=== PATIENT | male | born 1955 | race Caucasian/White ===

== ENCOUNTER 2017-03-06 07:26 | Inpatient (IN) | payer OTHER ==
[~2017-03-06] VITALS: Ht 182.9 cm; Wt 102.2 kg
[2017-03-06] MEDS ORDERED: BUPIVACAINE/PF-EPI 0.5% 1:200K ONE ×2 (07:53→07:54)
[2017-03-06] MEDS ORDERED: THROMBIN 5,000 UNIT VIAL TP ONE (07:53)
[2017-03-06] MEDS ORDERED: BACITRACIN 50,000 UNIT ONE (07:53)
[2017-03-06 07:56] VITALS: BP 144/94
[2017-03-06] MEDS ORDERED: AMLO5TAB2 PO (07:57)
[2017-03-06] MEDS ORDERED: METO200T3 PO (07:57)
[2017-03-06] MEDS ORDERED: METF10002 PO (07:57)
[2017-03-06] MEDS ORDERED: SENN8.6T64 PO (07:57)
[2017-03-06] MEDS ORDERED: GLIP5TAB10 PO (07:57)
[2017-03-06] MEDS ORDERED: LISI-170 PO (07:57)
[2017-03-06] MEDS ORDERED: ASPI-496 PO (07:57)
[2017-03-06] MEDS ORDERED: ATOR10TA9 PO (07:57)
[2017-03-06] MEDS ORDERED: DOCU240C53 PO (07:57)
[2017-03-06] MEDS ORDERED: MAGN420T PO (07:57)
[2017-03-06] MEDS ORDERED: LIDOCAINE 1%, 2ML SQ PRN (08:00)
[2017-03-06] MEDS: LACTATED RINGERS 1,000 ML IV SCH ×2 (09:31→20:14)
[2017-03-06] MEDS ORDERED: MIDAZOLAM 1 MG/ML, 2ML ONE (09:59)
[2017-03-06] MEDS ORDERED: FENTANYL PF 250 MCG/5ML ONE (09:59)
[2017-03-06] MEDS ORDERED: CEFAZOLIN 1,000 MG ONE (10:28)
[2017-03-06] MEDS ORDERED: ONDANSETRON 2MG/ML, 2ML ONE (10:28)
[2017-03-06] MEDS ORDERED: ROCURONIUM 10 MG/ML ONE (10:28)
[2017-03-06] MEDS ORDERED: PROPOFOL 10 MG/ML, 20ML ONE (10:28)
[2017-03-06] MEDS ORDERED: DEXAMETHASONE 4 MG/ML, 1ML ONE (10:28)
[2017-03-06] MEDS ORDERED: GLYCOPYRROLATE 0.2MG/1ML ONE (10:28)
[2017-03-06] MEDS ORDERED: NEOSTIGMINE 1 MG/ML, 10ML ONE (10:28)
[2017-03-06] MEDS ORDERED: EPHEDRINE 50 MG/ML, 1ML ONE (10:28)
[2017-03-06] MEDS ORDERED: ACETAMINOPHEN 325 MG TABLET PO PRN (12:30)
[2017-03-06] MEDS ORDERED: HYDROmorphone 1 MG/ML, 1ML IV PRN (12:30)
[2017-03-06] MEDS ORDERED: FENTANYL PF 100 MCG/2ML IV PRN (12:30)
[2017-03-06] MEDS ORDERED: MEPERIDINE/PF 25MG/0.5ML IVPush PRN (12:30)
[2017-03-06] MEDS ORDERED: ALBUTEROL/IPRATROPIUM 2.5MG/0.5MG, 3 ML NPPB PRN (12:30)
[2017-03-06] MEDS ORDERED: hydrALAzine 20 MG/ML, 1ML IV PRN (12:30)
[2017-03-06] MEDS ORDERED: OXYcodone 5 MG/5 ML ORAL.SOL UDC PO PRN (12:30)
[2017-03-06] MEDS ORDERED: METOPROLOL 1 MG/ML, 5ML IV PRN (12:30)
[2017-03-06] MEDS ORDERED: OXYcodone 5 MG/5 ML ORAL.SOL UDC ONE (12:55)
[2017-03-06] MEDS ORDERED: ACETAMINOPHEN 650 MG/20.3 ML UDC ONE (12:55)
[2017-03-06] MEDS ORDERED: FENTANYL PF 100 MCG/2ML ONE (12:55)
[2017-03-06] MEDS ORDERED: HYDROmorphone PCA 30 MG/30 ML ONE (13:10)
[2017-03-06] MEDS ORDERED: HYDROmorphone PCA 30 MG/30 ML IV PRN ×2 (13:30→14:49)
[2017-03-06 14:36] VITALS: BP 127/87
[2017-03-06] MEDS ORDERED: HYDROcodone/APAP 10/325 MG TABLET PO PRN (15:00)
[2017-03-06] MEDS ORDERED: OXYcodone/APAP 5/325MG TABLET PO PRN ×2 (15:00→16:30)
[2017-03-06] MEDS ORDERED: MAGNESIUM HYDROXIDE 8%, 30ML UDC PO PRN (15:00)
[2017-03-06] MEDS ORDERED: BISACODYL 10 MG SUPP PR PRN (15:00)
[2017-03-06] MEDS ORDERED: ONDANSETRON 2MG/ML, 2ML IV PRN (15:00)
[2017-03-06] MEDS ORDERED: DIPHENHYDRAMINE 50 MG/ML, 1ML IVPush PRN (15:00)
[2017-03-06] MEDS ORDERED: DIPHENHYDRAMINE 25 MG CAPSULE PO PRN (15:00)
[2017-03-06] MEDS ORDERED: TIZANIDINE 4MG TABLET PO PRN (15:00)
[2017-03-06] MEDS: metFORMIN 500 MG TABLET PO SCH (16:56)
[2017-03-06] MEDS: NS + 20MEQ KCL 1,000 ML IV SCH (17:44)
[2017-03-06] MEDS: CEFAZOLIN PMX 1GM/50ML 50 ML IVPB SCH (18:16)
[2017-03-06] MEDS: SENNOSIDES 8.6 MG TABLET PO SCH (20:16)
[2017-03-06] MEDS: MAGNESIUM OXIDE 400 MG TABLET PO SCH (20:16)
[2017-03-06 20:30] VITALS: BP 139/89
[2017-03-06] MEDS ORDERED: ATORVASTATIN 10 MG TABLET PO SCH (21:00)
[2017-03-07 00:15] VITALS: BP 142/88
[2017-03-07] MEDS: CEFAZOLIN PMX 1GM/50ML 50 ML IVPB SCH (03:22)
[2017-03-07] MEDS ORDERED: METOPROLOL SUCCINATE 100 MG TAB.ER.24H PO SCH (06:00)
[2017-03-07] MEDS: MAGNESIUM OXIDE 400 MG TABLET PO SCH (08:36)
[2017-03-07] MEDS: metFORMIN 500 MG TABLET PO SCH (08:36)
[2017-03-07] MEDS: SENNOSIDES 8.6 MG TABLET PO SCH (08:36)
[2017-03-07] MEDS: NS + 20MEQ KCL 1,000 ML IV SCH (08:39)
[2017-03-07] MEDS ORDERED: AMLODIPINE 5 MG TABLET PO SCH (09:00)
[2017-03-07] MEDS ORDERED: LISINOPRIL 20 MG TABLET PO SCH (09:00)
[2017-03-07] MEDS ORDERED: SENNA/DOCUSATE TABLET PO SCH (09:00)
[2017-03-07] MEDS ORDERED: DOCUSATE CALCIUM 240 MG CAPSULE PO SCH (09:00)
[2017-03-07 10:15] VITALS: BP 152/94
[2017-03-07] MEDS ORDERED: HYDR-3307 PO (11:26)
[2017-03-07] MEDS ORDERED: TIZA2CAP2 PO (11:27)
== END 2017-03-07 11:40 | disposition home or self-care (01) | DRG 516 ==
LOC: OUT 07:26 → 4NOR 14:39 → OUT 21:32 → 4NOR 21:32 → DCLOUNGE 03-07 11:23
PROVIDERS: ADMIT Neurological Surgery; ATTEND Neurological Surgery
PROC: 01NR0ZZ Release Sacral Nerve, Open Approach (ICD-10-PCS; 2017-03-06)
PROC: 01NB0ZZ Release Lumbar Nerve, Open Approach (ICD-10-PCS; principal; 2017-03-06 10:30)
DX: M48.06 Spinal stenosis, lumbar region (principal); B19.10 Unspecified viral hepatitis B without hepatic coma; B19.20 Unspecified viral hepatitis C without hepatic coma; E11.8 Type 2 diabetes mellitus with unspecified complications; I11.0 Hypertensive heart disease with heart failure; I50.9 Heart failure, unspecified
CPT/HCPCS: 72100; 82962; J0690; J1100; J1170; J2250; J2405; J2704; J2710; J3010; J3480; J3490; J7120